=== PATIENT | male | born 1935 | race Caucasian/White ===

== ENCOUNTER → 2019-05-23 | Day surgery (SDC) | payer OTHER ==
[~2019-05-23] MED LIST: ATENOLOL 50MG T50 MG PO; CEFPODOXIME PR200 M1 PO; DICYCLOMINE HCL20 MG PO; FLOMAX0.4 MG PO; HYOSCYAMINE0.125 MG PO; KEFLEX250 M1 PO; MINOCYCLINE 5050 M1 PO; PROTONIX 20 MG20 M1 PO; ROXICODONE5 M2 PO; ZESTRIL40 MG PO
[2019-05-23 06:51] LABS: HEMOGLOBIN 12.4 gm/dL (14.0-18.0); MCH 30.9 pg (26.0-34.0); MCHC 32.8 g/dL (28.0-37.0); MCV 94.3 fL (80.0-100.0); MPV 8.3 fl. (7.2-11.1); RBC 4.03 mil/uL (4.50-6.00); RDW-CV 16.6 % (10.5-14.5); WBC 8.2 thou/uL (4.0-11.0)
[2019-05-23 06:58] LABS: CALCIUM 9.1 mg/dL (8.5-10.1); POTASSIUM 4.3 mmol/L (3.5-5.1)
[2019-05-23 07:03] LABS: ALBUMIN 2.5 g/dL (3.4-5.0); TOTAL BILIRUBIN 0.6 mg/dL (<0.1-1.0); TOTAL PROTEIN 6.6 g/dL (6.4-8.2)
--- NOTE | 2019-05-23 11:01 | EKG ---
[place] [address] ELECTROCARDIOGRAM REPORT Name: VIC REYES Room: [facility].#: [id number] Admission: 05/23/19 Attend Phys: Melquiades Garcia MD Discharge: Date of : 35 Report #: [id number] THIS REPORT FOR: //name// [facility] Test Date: 2019-05-23 Test Time: 07:28:23 Pat Name: VIC REYES Department: Room: Gender: M [employer]ist: : [id number] Requested By: Melquiades Garcia Order Number: [id number] Reading MD: Ron Soria Measurements Intervals [place] Rate: 94 P: 21 [place]: 157 QRS: -38 QRSD: 94 T: 60 QT: 366 QTc: 458 Interpretive Statements Sinus rhythm Left axis deviation Borderline low voltage, extremity leads Baseline wander in lead(s) V1 No previous ECG available for comparison Electronically Signed On 05-23-2019 11:01:31 MEDICAL PHYSIOLOGIST by Ron Soria [email or web address] <ELECTRONICALLY SIGNED> By: Ron Soria MD, [facility] 05/23/19 1101 0728 0728 Ron Soria MD, FACC /EPI
--- NOTE | 2019-05-23 12:36 | OP ---
[address] [address] OPERATIVE REPORT Name: VIC REYES TADEO Room: [facility]#: [id number] Admission: 05/23/19 Attend Phys: Melquiades Garcia MD Discharge: Date of : 35 Report #: [id number] THIS REPORT FOR: //name// CC: Chelsy Garcia DATE OF SERVICE: 05/23/2019 PREOPERATIVE DIAGNOSIS: Right renal calculus. POSTOPERATIVE DIAGNOSIS: Right renal calculus. PROCEDURE: Cystoscopy, right ureteral stent exchange, right ureteroscopy, laser lithotripsy, stone extraction. SURGEON: Melquiades Garcia MD ANESTHESIA: General. ESTIMATED BLOOD LOSS: None. DRAINS: A 6 x 28 right ureteral stent. SPECIMENS: Stone fragments. COMPLICATIONS: None. INDICATIONS: This is an 83-year-old gentleman who underwent recent stent placement for an obstructing ureteropelvic junction stone and UTI. He presents for definitive stone management after discussion of alternatives, risks, and benefits. We discussed procedure options and he elected cystoscopy with right ureteral stent change, ureteroscopic stone manipulation with laser. Risks of procedure were explained. He voices clear understanding and wants to proceed. DESCRIPTION OF PROCEDURE: The patient was pretreated with IV antibiotics. After induction of general anesthesia, he was positioned, prepped and draped in the lithotomy position. Cystourethroscopy was performed. The urethra and bladder are unchanged from recent examination. Of note, cystoscopy was performed after a timeout procedure and prep and drape was performed after removal of his indwelling Agarwal catheter. Right ureteral stent was noted in position. Fluoroscopic interrogation shows good stent position. Stone appears to have migrated to the lower pole. A sensor wire was advanced alongside the stent and into the renal pelvis. Stent was grasped with forceps and brought out to the urethral meatus where it was accessed with a second sensor wire. This was also passed to the renal pelvis with fluoroscopic guidance. Scope was removed leaving both wires in place. The second wire [place] [address] OPERATIVE REPORT Name: VIC REYES Room: [facility] M..#: [id number] Admission: 05/23/19 Attend Phys: Melquiades Garcia MD Discharge: Date of : 35 Report #: [id number] 11-Djiboutian obturator, which passed easily with fluoroscopic guidance. This was then passed in tandem with a 13-Djiboutian x 36 cm ureteral access sheath. Again, this passed easily with fluoroscopic guidance. The obturator and wire were removed leaving the sheath in place with a safety wire alongside. Flexible ureteroscope was advanced per the sheath and passes easily to the proximal ureter. Proximal ureter was examined and there is edema in the proximal ureter and the ureteropelvic junction. Scope was advanced into the renal pelvis where the stone was encountered. This was engaged with a 272 micron holmium laser fiber and laser lithotripsy was performed. Stone broke up nicely at 6.4 davis. Fragments were extracted with a 0 tip basket. Care was taken to avoid injury to the surrounding tissues and the wire. This process was continued until all remaining fragments are too small to entrap with basket and thus appeared passable. The wire was noted in the renal pelvis. The scope was withdrawn after withdrawing the sheath. The remainder of the ureter was examined and there were no remaining stone fragments or other abnormalities. The wire was loaded on the cystoscope and used for placement of a 6 x 28 right ureteral stent with good position confirmed in the renal pelvis fluoroscopically and in the bladder visually. Given the edema and recent UTI, we will plan to leave his stent for approximately 2-4 weeks and then remove the stent if a followup radiograph does not reveal any significant residual fragments. <ELECTRONICALLY SIGNED> By: Melquiades Garcia MD 05/23/19 1236 0933 1012Johu Garcia MD /nt
== END | disposition home or self-care (01) ==
LOC: M.SUR
PROVIDERS: Urology
DX: N20.0 Calculus of kidney (principal); Z98.890 Other specified postprocedural states; Z88.8 Allergy status to other drugs, medicaments and biological substances; Z79.899 Other long term (current) drug therapy